=== PATIENT | male | born 1990 | race Two or more races ===

== ENCOUNTER 2023-05-16 20:36 | Emergency (ER) | payer OTHER ==
[~2023-05-16] VITALS: Ht 180.3 cm; Wt 95.7 kg
[2023-05-16] MEDS ORDERED: MEDROLPACK PO (22:55)
== END 2023-05-16 22:58 | disposition home or self-care (01) ==
LOC: ER 20:36
DX: S13.4XXA Sprain of ligaments of cervical spine, initial encounter (principal); V43.62XA Car passenger injured in collision with other type car in traffic accident, initial encounter; Y93.89 Activity, other specified; Y92.413 State road as the place of occurrence of the external cause; Z88.6 Allergy status to analgesic agent